=== PATIENT | female | born 1960 | race Caucasian/White ===

== ENCOUNTER 2024-04-19 10:23 | Inpatient (IN) | payer BC ==
[~2024-04-19] VITALS: Ht 149.9 cm; Wt 71.8 kg
[2024-04-19] MEDS ORDERED: MVI,5VIA6 (10:44)
[2024-04-19] MEDS ORDERED: ROSU20TA98 PO (10:44)
[2024-04-19] MEDS ORDERED: OMEP20TA23 PO (10:44)
[2024-04-19 11:11] LABS: BASOPHILS % (AUTO) 0.6 % (0-1); EOSINOPHILS # (AUTO) 0.1 X10'3 (0-0.9); EOSINOPHILS % (AUTO) 0.9 % (0-6); HEMATOCRIT 43.8 % (35.0-45.0); HEMOGLOBIN 14.9 g/dl (12.0-16.0); LYMPHOCYTES # (AUTO) 1.5 X10'3 (1.1-4.8); LYMPHOCYTES % (AUTO) 18.8 % (21-51); MEAN CORPUSCULAR HEMOGLOBIN 31.3 PG (27.0-31.0); MEAN CORPUSCULAR VOLUME 91.9 FL (78-98); MEAN PLATELET VOLUME 7.7 FL (7.4-10.4); MONOCYTES # (AUTO) 0.5 X10'3 (0-0.9); MONOCYTES % (AUTO) 5.7 % (2-12); PLATELET COUNT 339 X10'3 (140-440); RED BLOOD COUNT 4.77 X10'6 (4.20-5.60); RED CELL DISTRIBUTION WIDTH 14.9 % (11.5-14.5); WHITE BLOOD COUNT 8.1 X10'3 (4.5-11.0)
[2024-04-19 11:29] LABS: ALANINE AMINOTRANSFERASE 168 U/L (12-78); ALBUMIN 3.1 G/DL (3.4-5.0); ALBUMIN/GLOBULIN RATIO 0.8 (1.1-1.5); ALKALINE PHOSPHATASE 285 IU/L (46-116); ANION GAP 8 (8-16); ASPARTATE AMINO TRANSFERASE 425 U/L (10-37); BLOOD UREA NITROGEN 14 MG/DL (7-18); CALCIUM 9.2 MG/DL (8.5-10.1); CHLORIDE 108 MMOL/L (99-107); CREATININE 0.56 MG/DL (0.40-0.90); GLUCOSE 99 MG/DL (70-104); POTASSIUM 3.5 MMOL/L (3.5-5.1); SODIUM 144 MMOL/L (135-145); TOTAL CARBON DIOXIDE 28.2 MMOL/L (24-32); TOTAL PROTEIN 6.8 G/DL (6.4-8.2); eCRCL 69 ML/MIN; eGFR > 90 ML/MIN
[2024-04-19 11:32] LABS: LIPASE 33 U/L (16-77)
[2024-04-19] MEDS ORDERED: iohexol 300mg/ml 100ml inj. ONE (12:37)
[2024-04-19 15:23] LABS: BILIRUBIN,URINE NEGATIVE (Neg); CLARITY,URINE CLEAR (Clear); COLOR,URINE YELLOW (Yellow); GLUCOSE, URINE NEGATIVE (Neg); KETONES,URINE 15 mg/dl (Neg); LEUKOCYTE ESTERASE ,URINE NEGATIVE (Neg); NITRITES, URINE NEGATIVE (Neg); OCCULT BLOOD,URINE NEGATIVE (Neg); PROTEIN,URINE NEGATIVE (Neg)
[2024-04-19 15:24] LABS: UA COLLECTION TYPE NON-SPECIFIED
[2024-04-19 17:04] LABS: ALANINE AMINOTRANSFERASE 366 U/L (12-78); ALBUMIN 3.3 G/DL (3.4-5.0); ALBUMIN/GLOBULIN RATIO 0.8 (1.1-1.5); ALKALINE PHOSPHATASE 393 IU/L (46-116); ANION GAP 9 (8-16); ASPARTATE AMINO TRANSFERASE 595 U/L (10-37); BILIRUBIN,TOTAL 0.7 MG/DL (0.1-1.0); BLOOD UREA NITROGEN 13 MG/DL (7-18); BUN/CREATININE RATIO 22.8 (10.0-20.0); CALCIUM 8.8 MG/DL (8.5-10.1); CHLORIDE 105 MMOL/L (99-107); CREATININE 0.57 MG/DL (0.40-0.90); GLUCOSE 100 MG/DL (70-104); SODIUM 142 MMOL/L (135-145); TOTAL PROTEIN 7.2 G/DL (6.4-8.2); eCRCL 68 ML/MIN; eGFR > 90 ML/MIN
[2024-04-19 17:08] LABS: POTASSIUM 3.6 MMOL/L (3.5-5.1)
[2024-04-19] MEDS ORDERED: mag hydrox/Alum hydrox/simeth 30ml oral suspension PO PRN (17:35)
[2024-04-19] MEDS ORDERED: potassium Cl 40MEQ/1/2NS 520ml 520 ML IV PRN (17:35)
[2024-04-19] MEDS ORDERED: acetaminophen 325mg tablet PO PRN (17:35)
[2024-04-19] MEDS ORDERED: magnesium sulf-water 2g/50mL 50 ML IV PRN (17:35)
[2024-04-19] MEDS ORDERED: magnesium hydroxide 30ml (MOM) UD suspension PO PRN (17:35)
[2024-04-19] MEDS ORDERED: morphine 2 MG/ML inj. syringe IV PRN ×4 (17:35→18:05)
[2024-04-19] MEDS ORDERED: magnesium Cl slow-release 64mg tablet PO PRN (17:35)
[2024-04-19] MEDS ORDERED: ondansetron/PF 4mg/2ml inj IV PRN (17:35)
[2024-04-19] MEDS ORDERED: potassium Cl 20 mEq SR tablet PO PRN (17:35)
[2024-04-19] MEDS ORDERED: magnesium sulf-water 4G/100mL 100 ML IV PRN (17:35)
[2024-04-19] MEDS: K and/or MAG REPLACEMENT MC SCH (20:00)
[2024-04-19] MEDS ORDERED: docusate sod 100mg capsule PO SCH (20:00)
[2024-04-19] MEDS ORDERED: enoxaparin 40mg/0.4ml syringe SQ SCH (20:00)
[2024-04-19] MEDS: heparin, porcine 5000 units/ml vial SQ SCH (20:43)
[2024-04-19] MEDS: normal saline 1000ml 1,000 ML IV SCH (20:43)
[2024-04-19] MEDS: pantoprazole 40mg Tablet.DR PO SCH (20:43)
[2024-04-19 22:30] VITALS: BP 114/91; PULSE 62; RESP 18; TEMP 98.9; O2SAT 96; O2SAT 97
[2024-04-20] MEDS ORDERED: TIRZ15PE SQ (03:02)
[2024-04-20 06:15] VITALS: BP 102/38; PULSE 58; RESP 13; TEMP 98; O2SAT 95
[2024-04-20 06:20] LABS: BASOPHILS % (AUTO) 0.1 % (0-1); EOSINOPHILS % (AUTO) 0 % (0-6); HEMOGLOBIN 13.2 g/dl (12.0-16.0); LYMPHOCYTES # (AUTO) 0.6 X10'3 (1.1-4.8); LYMPHOCYTES % (AUTO) 6.3 % (21-51); MEAN CORPUSCULAR HGB CONC 33.9 g/dL (33.0-36.5); MEAN CORPUSCULAR VOLUME 91.3 FL (78-98); MEAN PLATELET VOLUME 8.5 FL (7.4-10.4); MONOCYTES # (AUTO) 0.4 X10'3 (0-0.9); MONOCYTES % (AUTO) 4.3 % (2-12); NEUTROPHILS # (AUTO) 8.6 X10'3 (1.8-7.7); NEUTROPHILS % (AUTO) 89.3 % (42-75); PLATELET COUNT 308 X10'3 (140-440); RED BLOOD COUNT 4.27 X10'6 (4.20-5.60); RED CELL DISTRIBUTION WIDTH 14.8 % (11.5-14.5); WHITE BLOOD COUNT 9.6 X10'3 (4.5-11.0)
[2024-04-20 07:18] LABS: ALANINE AMINOTRANSFERASE 374 U/L (12-78); ALBUMIN 2.7 G/DL (3.4-5.0); ALBUMIN/GLOBULIN RATIO 0.8 (1.1-1.5); ALKALINE PHOSPHATASE 316 IU/L (46-116); ANION GAP 9 (8-16); ASPARTATE AMINO TRANSFERASE 439 U/L (10-37); BLOOD UREA NITROGEN 11 MG/DL (7-18); BUN/CREATININE RATIO 18.3 (10.0-20.0); CHLORIDE 106 MMOL/L (99-107); GLUCOSE 100 MG/DL (70-104); MAGNESIUM 1.9 MG/DL (1.5-2.4); POTASSIUM 3.2 MMOL/L (3.5-5.1); SODIUM 140 MMOL/L (135-145); TOTAL CARBON DIOXIDE 24.8 MMOL/L (24-32); TOTAL PROTEIN 6.1 G/DL (6.4-8.2); eCRCL 65 ML/MIN; eGFR > 90 ML/MIN
[2024-04-20 08:47] VITALS: RESP 16
[2024-04-20] MEDS: potassium Cl 20 mEq SR tablet PO PRN (09:28)
[2024-04-20 11:06] VITALS: BP 97/51; PULSE 73; RESP 18; TEMP 98.6; O2SAT 97
[2024-04-21 08:38] LABS: HBSAG SCREEN Negative (Negative); HEP A AB, IGM Negative (Negative); HEP B CORE AB, TOT Negative (Negative); HEPATITIS C VIRUS ANTIBODY Non Reactive (Non Reactive)
== END 2024-04-20 16:45 | disposition home or self-care (01) | DRG 392 ==
LOC: ER 10:24 → ED HOLD 17:34 → UNDOADMIN 17:34 → ED HOLD 18:08 → SUR 3N 22:19
PROVIDERS: ADMIT Internal Medicine; ATTEND Internal Medicine
DX: K29.70 Gastritis, unspecified, without bleeding (principal); K71.9 Toxic liver disease, unspecified; E78.00 Pure hypercholesterolemia, unspecified; I25.10 Atherosclerotic heart disease of native coronary artery without angina pectoris; R74.01 Elevation of levels of liver transaminase levels; G25.81 Restless legs syndrome; E66.9 Obesity, unspecified; K21.9 Gastro-esophageal reflux disease without esophagitis; R74.8 Abnormal levels of other serum enzymes; T46.6X5A Adverse effect of antihyperlipidemic and antiarteriosclerotic drugs, initial encounter; Z90.49 Acquired absence of other specified parts of digestive tract; I25.2 Old myocardial infarction; Z68.32 Body mass index [BMI] 32.0-32.9, adult; Z82.49 Family history of ischemic heart disease and other diseases of the circulatory system; Z80.0 Family history of malignant neoplasm of digestive organs; Z82.61 Family history of arthritis; Z83.3 Family history of diabetes mellitus; Y92.89 Other specified places as the place of occurrence of the external cause
CPT/HCPCS: 36415; 74177; 74181; 76700; 80053; 81003; 83690; 83735; 84484; 85025; 86704; 86709; 86803; 87081; 87340; 87522; 93005; 99285; G0378; J1644; J7030; Q9967

== ENCOUNTER 2024-05-25 11:34 | Outpatient (CLI) | payer BC ==
[~2024-05-25 11:34] MED LIST: MVI,5VIA6; OMEP20TA23 PO
[2024-05-25 15:03] LABS: ALANINE AMINOTRANSFERASE 60 U/L (12-78); ALBUMIN 3.2 G/DL (3.4-5.0); ALBUMIN/GLOBULIN RATIO 0.8 (1.1-1.5); ALKALINE PHOSPHATASE 234 IU/L (46-116); ASPARTATE AMINO TRANSFERASE 22 U/L (10-37); BILIRUBIN,DIRECT 0.1 MG/DL (0-0.3); BILIRUBIN,TOTAL 0.3 MG/DL (0.1-1.0); TOTAL PROTEIN 7.2 G/DL (6.4-8.2)
== END 2024-05-25 23:59 | disposition home or self-care (01) ==
LOC: LAB 11:34
PROVIDERS: ATTEND Registered Nurse
DX: R79.89 Other specified abnormal findings of blood chemistry (principal)
CPT/HCPCS: 36415; 80076

== ENCOUNTER 2024-07-09 12:13 | Emergency (ER) | payer BC ==
[~2024-07-09] VITALS: Ht 149.9 cm; Wt 69.1 kg
[2024-07-09 12:19] VITALS: TEMP 97.9
[2024-07-09] MEDS: normal saline 1000ml 1,000 ML IVB ONE (12:34)
[2024-07-09 12:44] LABS: BASOPHILS # (AUTO) 0.1 X10'3 (0-0.2); BASOPHILS % (AUTO) 0.9 % (0-1); EOSINOPHILS # (AUTO) 0.1 X10'3 (0-0.9); EOSINOPHILS % (AUTO) 1.1 % (0-6); HEMOGLOBIN 15.3 g/dl (12.0-16.0); LYMPHOCYTES # (AUTO) 3.4 X10'3 (1.1-4.8); MEAN CORPUSCULAR HEMOGLOBIN 30.3 PG (27.0-31.0); MEAN CORPUSCULAR HGB CONC 33.2 g/dL (33.0-36.5); MEAN CORPUSCULAR VOLUME 91.3 FL (78-98); MEAN PLATELET VOLUME 8.4 FL (7.4-10.4); MONOCYTES # (AUTO) 0.6 X10'3 (0-0.9); MONOCYTES % (AUTO) 7.3 % (2-12); NEUTROPHILS # (AUTO) 4.3 X10'3 (1.8-7.7); NEUTROPHILS % (AUTO) 50.7 % (42-75); PLATELET COUNT 406 X10'3 (140-440); RED BLOOD COUNT 5.04 X10'6 (4.20-5.60); RED CELL DISTRIBUTION WIDTH 15.3 % (11.5-14.5); WHITE BLOOD COUNT 8.5 X10'3 (4.5-11.0)
[2024-07-09 12:57] LABS: ALANINE AMINOTRANSFERASE 406 U/L (12-78); ALBUMIN 3.8 G/DL (3.4-5.0); ALKALINE PHOSPHATASE 406 IU/L (46-116); ANION GAP 11 (8-16); ASPARTATE AMINO TRANSFERASE 140 U/L (10-37); BILIRUBIN,TOTAL 0.8 MG/DL (0.1-1.0); BLOOD UREA NITROGEN 18 MG/DL (7-18); BUN/CREATININE RATIO 15.8 (10.0-20.0); CALCIUM 9.4 MG/DL (8.5-10.1); CHLORIDE 105 MMOL/L (99-107); CREATININE 1.14 MG/DL (0.40-0.90); GLUCOSE 102 MG/DL (70-104); POTASSIUM 3.6 MMOL/L (3.5-5.1); SODIUM 140 MMOL/L (135-145); TOTAL CARBON DIOXIDE 23.9 MMOL/L (24-32); TOTAL PROTEIN 7.5 G/DL (6.4-8.2); eCRCL 34 ML/MIN; eGFR 48 ML/MIN
--- NOTE | 2024-07-09 12:59 | RADIOLOGY REPORT ---
EXAM: DI CHEST,SINGLE VIEW Indication: CP Technique: Single frontal view of the chest was obtained Comparison: None FINDINGS: Lines and Tubes: None Lungs: No focal consolidation. Pleura: No effusion. No pneumothorax. Cardiomediastinal contours: Unremarkable Bones: No acute osseous abnormality. IMPRESSION: No acute cardiopulmonary disease.
[2024-07-09 13:04] LABS: PRO BRAIN NATRIURETIC PEPTIDE 2266 PG/ML (0-125)
--- NOTE | 2024-07-09 13:24 | Physician Documentation ---
History of Present Illness ~ Chief Complaint: Syncope Stated Complaint: DIZZINESS Time Seen by MD: 12:39 Primary Medical Doctor: BARNEY PADILLA Mode of Arrival: Ambulatory HPI 63-year-old female who is manipulate that our hospital presenting for dizziness. The patient was outside helping with something and she bent over to pick something up and when she stood up suddenly got very dizzy. She states that it was also very hot outside. She states that she got very lightheaded and felt like she was going to pass out. She then sat down he reports a water over her head and felt better. Medication Reconciliation Allergies: Coded Allergies: No Known Allergies (Unverified , 07/09/24) Scheduled Omeprazole Magnesium (Prilosec Otc), 1 TAB PO DAILY, (Reported) Miscellaneous Medications Mvi, Adult No.1, Vit K, 1 of 2 (M.v.i. Adult Vial 1), (Reported) Past Medical History Patient History: Erythema nodosum FATHER FH: CHF (congestive heart failure) FATHER FH: pancreatic cancer MOTHER FH: rheumatoid arthritis Sister FH: type 2 diabetes FATHER Alcohol Use: None Drug Use: none Lives with: Family Lives In: Home Occupation: employed Physical Exam Vital Signs: Temperature: 97.9, Source: Oral, Heart Rate: 98, Respiratory Rate: 16, BP: 104/59, Pulse Oximetry: 98, Weight: 69.090 Physical Exam I have reviewed the triage vitals. CONST: Well developed and well nourished. In no acute distress HENT: Head Atraumatic EYES: Pupils are equal, round and reactive to light. Normal conjunctiva NECK: Normal range of motion. Supple. CARDIO: Normal rate and regular rhythm. No murmurs, rubs, or gallops. S1, S2. PULM/CHEST: No respiratory distress. Lungs clear to auscultation. No wheeze ABD: Soft and nontender. Nondistended. Bowel sounds normal. No guarding. : Exam deferred MSK: No edema. No deformity. NEURO: Alert and oriented to person, place and time. Moving all extremities SKIN: Warm and dry. PSYCH: Normal mood and affect. Good eye contact. Progress Results/Orders Results/Orders Orders - XIOMY CARTER MD Chest,Single View (07/09/24 12:27) Monitor (07/09/24 12:27) Saline Lock (5/1/25 12:27) Oxygen (07/09/24 12:27) PBNP (07/09/24 12:27) Electrocardiogram (07/09/24 12:27) CMP (07/09/24 12:27) Hs Troponin I W Calculations (07/09/24 14:27) Hs Troponin I W Calculations (07/09/24 15:27) MG (07/09/24 12:18) Completed Orders - XIOMY CARTER MD Normal Saline 1000ml (Sodium Chloride 10 (07/09/24 12:25) Chest,Single View (07/09/24 12:27) Cbc/Diff (07/09/24 12:27) Hs Troponin I W Calculations (07/09/24 12:27) Medications Received in ER Medications (Trade) Dose Ordered Sig/Zari Route PRN Reason Start Time Stop Time Status Last Admin Dose Admin Sodium Chloride 1,000 ml @ 1,000 mls/hr Q1H ONCE IVB 07/09/24 12:25 07/09/24 13:24 DC 07/09/24 12:34 1,000 MLS/HR Vital Signs 07/09/24 07/09/24 12:19 13:57 Temp 97.9 Pulse 98 78 Resp 16 16 B/P (MAP) 104/59 130/84 (99) Pulse Ox 98 95 Laboratory Tests Test 07/09/24 12:18 White Blood Count 8.5 Red Blood Count 5.04 Hemoglobin 15.3 Hematocrit 46.0 H Mean Corpuscular Volume 91.3 Mean Corpuscular Hemoglobin 30.3 Mean Corpuscular Hemoglobin Concent 33.2 Red Cell Distribution Width 15.3 H Platelet Count 406 Mean Platelet Volume 8.4 Neutrophils (%) (Auto) 50.7 Lymphocytes (%) (Auto) 40.0 Monocytes (%) (Auto) 7.3 Eosinophils (%) (Auto) 1.1 Basophils (%) (Auto) 0.9 Neutrophils # (Auto) 4.3 Lymphocytes # (Auto) 3.4 Monocytes # (Auto) 0.6 Eosinophils # (Auto) 0.1 Basophils # (Auto) 0.1 CBC Comment Sodium Level 140 Potassium Level 3.6 Chloride Level 105 Carbon Dioxide Level 23.9 L Anion Gap 11 Blood Urea Nitrogen 18 Creatinine 1.14 H Estimated GFR/1.73 m2 48 BUN/Creatinine Ratio 15.8 Glucose Level 102 Calcium Level 9.4 Total Bilirubin 0.8 Aspartate Amino Transf (AST/SGOT) 140 H Alanine Aminotransferase (ALT/SGPT) 406 H Alkaline Phosphatase 406 H Troponin I High Sensitivity 13 Pro-B-Type Natriuretic Peptide 2266 H Total Protein 7.5 Albumin 3.8 Globulin 3.7 Albumin/Globulin Ratio 1.0 L Chemistry Comments EKG/XRAY/CT/US/VASC/MRI Chest X-Ray : Additional Comments EXAM: DI CHEST,SINGLE VIEW Indication: CP Technique: Single frontal view of the chest was obtained Comparison: None FINDINGS: Lines and Tubes: None Lungs: No focal consolidation. Pleura: No effusion. No pneumothorax. Cardiomediastinal contours: Unremarkable Bones: No acute osseous abnormality. IMPRESSION: No acute cardiopulmonary disease. Departure Disposition: HOME / SELF CARE / HOMELESS Impression: Primary Impression: Dizziness Additional Impressions: Pre-syncope Dehydration Discharge Instructions: Dehydration, Elderly, [id number] Referrals: NO PRIMARY CARE PROVIDER (PCP) XIOMY CARTER MD July 09, 2024 13:24
[2024-07-09 13:57] VITALS: BP 130/84; PULSE 78; RESP 16; O2SAT 95
[2024-07-09 14:06] LABS: MAGNESIUM 2.1 MG/DL (1.5-2.4)
--- NOTE | 2024-07-10 06:38 | ELECTROCARDIOGRAPH REPORT ---
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 Ryland Lynn Measurements Intervals [place] Rate: 73 P: 10 TN: 168 QRS: -4 QRSD: 96 T: 58 QT: 443 QTc: 489 Interpretive Statements Sinus rhythm Supraventricular bigeminy Borderline T wave abnormalities Borderline prolonged QT interval Electronically Signed On 07-10-2024 22:15:[address] Ryland Lynn Please click the below link to view image of tracing.
== END 2024-07-09 14:12 | disposition home or self-care (01) ==
LOC: ER 12:14
DX: R42 Dizziness and giddiness (principal); R55 Syncope and collapse; E86.0 Dehydration; Z79.899 Other long term (current) drug therapy
CPT/HCPCS: 36415; 71045; 80053; 83735; 83880; 84484; 85025; 93005; 96360; 99285; J7030

== ENCOUNTER 2024-07-24 09:39 | Outpatient (CLI) | payer BC ==
[2024-07-24 10:28] LABS: ALANINE AMINOTRANSFERASE 54 U/L (12-78); ALBUMIN 3.1 G/DL (3.4-5.0); ALKALINE PHOSPHATASE 191 IU/L (46-116); ANION GAP 7 (8-16); ASPARTATE AMINO TRANSFERASE 28 U/L (10-37); BILIRUBIN,TOTAL 0.4 MG/DL (0.1-1.0); BLOOD UREA NITROGEN 12 MG/DL (7-18); BUN/CREATININE RATIO 14.8 (10.0-20.0); CALCIUM 8.6 MG/DL (8.5-10.1); CHLORIDE 108 MMOL/L (99-107); CREATININE 0.81 MG/DL (0.40-0.90); GLUCOSE 146 MG/DL (70-104); POTASSIUM 3.9 MMOL/L (3.5-5.1); PRO BRAIN NATRIURETIC PEPTIDE 819 PG/ML (0-125); SODIUM 143 MMOL/L (135-145); TOTAL CARBON DIOXIDE 27.9 MMOL/L (24-32); TOTAL PROTEIN 6.3 G/DL (6.4-8.2); eGFR 71 ML/MIN
== END 2024-07-24 23:59 | disposition home or self-care (01) ==
LOC: LAB 09:39
PROVIDERS: ATTEND Nurse Practitioner Family
DX: R06.02 Shortness of breath (principal)
CPT/HCPCS: 36415; 80053; 83880

== ENCOUNTER 2024-08-10 08:05 | Outpatient (CLI) | payer BC, MEDICARE ==
[~2024-08-10] VITALS: Ht 151.1 cm; Wt 71.8 kg
[2024-08-10] VITALS (7 sets, daily range): BP systolic 123–136; BP diastolic 56–86; PULSE 60–103; RESP 16; O2SAT 96–99
[2024-08-10] MEDS ORDERED: regadenoson 0.4mg/5ml syringe IV ONE (09:05)
[2024-08-10] MEDS ORDERED: aminophylline 500mg/20ml vial IV ONE (09:05)
[2024-08-10] MEDS: regadenoson 0.4mg/5ml syringe IV ONE (10:18)
--- NOTE | 2024-08-10 14:26 | RADIOLOGY REPORT ---
Procedure: NM NM YANA SCAN Exam Date: 08/10/2024 09:41 AM Reason for study/Clinical History: UNSPECIFIED ATRIAL FIBRILLATION Comparison Study: None Myocardial Perfusion Study with SPECT Technique: The patient received an intravenous injection of 8.8 mCi of technetium-99m sestamibi whi le at rest. After a short delay, SPECT tomographic images of the heart were obtained. The patient corine fortune went to the stress lab where they received an intravenous Lexiscan utilizing standard protocol. 3 5 mCi of technetium-99m sestamibi was injected intravenously immediately after the start of the inf usion. Gated SPECT tomographic images of the heart were acquired and processed. Findings: Rotating planar images show no significant attenuation artifact. No evidence for ischemia. Prior infarction of the apical wall. Gated portion of the study shows normal wall motion and myocardial thickening. The left ventricular ejection fraction is 28%. (normal greater than 50%) Impression: No evidence for ischemia. Prior apical wall infarction.
--- NOTE | 2024-08-10 18:46 | CARDIOLOGY REPORT ---
APPROVED REPORT EXAM: Comprehensive 2D, Doppler, and color-flow Echocardiogram. Patient Location: OUT-PATIENT Blood Pressure: 114 / 70 mmHg Heart Rate: 61-112 bpm Rhythm: SINUS ARRHYTHMIA Indications ATRIAL FIBRILLATION HYPERLIPIDEMIA SHORT OF BREATH Radiologic Technologist Mammogram: Erin Benitez MD Previous echo: NONE 2D Dimensions RVDd 3.2 cm LA Diam5.4 cm LVOT Diameter 2.06 (1.8-2.4cm) M-Mode Dimensions Left Atrium(MM) 4.86 (2.5-4.0cm) IVSd 0.70 (0.7-1.1cm) LVDd 6.70 (4.0-5.6cm) Aortic Root 2.59 (2.2-3.7cm) PWd 0.81 (0.7-1.1cm) IVSs 1.30 cm MV EPSS 1.2 (<0.5cm) LVDs 4.68 (2.0-3.8cm) FS (%) 30 % PWs 1.19 cm ESV(Teich) 101.1 ml LVEF(%) 56 (>50%) Aortic Valve AoV Peak Khadar. 141.7 cm/s AoV VTI 32.5 cm AO Peak GR. 7.6 mmHg AO Mean GR. 5 mmHg LVOT VTI 23.07 cm LVOT Peak Khadar. 98.8 cm/s HAMIDA (VMAX) 2.31 cm2 HAMIDA (VTI) 2.35 cm2 Mitral Valve MV E Velocity 94.0 cm/s MV DECEL TIME 171 ms MV A Velocity 68.3 cm/s MV PHT 82 ms E/A Ratio 1.4 MVA (PHT) 2.69 cm2 LEFT VENTRICLE Normal LV size and wall thickness. Overall systolic function is low normal. LVEF is 55%. GLS - 13.4 % . RIGHT VENTRICLE RV is normal size and function. ATRIA Left atrium is moderately dilated. AORTIC VALVE Trileaflet AV appears mildly sclerotic without stenosis or insufficiency. MITRAL VALVE Thickened MV annulus and leaflets without stenosis. Trace regurgitation. TRICUSPID VALVE TV appears structurally normal with trace regurgitation. PULMONIC VALVE Normal PV without stenosis, physiologic insufficiency. GREAT VESSELS Aortic root is normal in size. Normal appearing arch with normal flow velocities. Ascending aorta is normal in size. PERICARDIUM Normal pericardium. No effusion. Other Information Study Quality: Adequate Conclusion Normal LV size and wall thickness. Overall systolic function is low normal. LVEF is 55%. GLS - 13.4 % . RV is normal size and function. Left atrium is moderately dilated. Trileaflet AV appears mildly sclerotic without stenosis or insufficiency. Thickened MV annulus and leaflets without stenosis. Trace regurgitation. TV appears structurally normal with trace regurgitation. Normal pericardium. No effusion.
== END 2024-08-10 23:59 | disposition home or self-care (01) ==
LOC: RAD 08:05
PROVIDERS: ATTEND Nurse Practitioner Family
DX: I08.8 Other rheumatic multiple valve diseases (principal); I48.91 Unspecified atrial fibrillation
CPT/HCPCS: 93017; 93306; J0280; J2785

== ENCOUNTER 2025-01-11 08:31 | Emergency (ER) | payer BC ==
[2025-01-11 08:31] VITALS: BP 125/76; PULSE 64; RESP 18; TEMP 98.5; O2SAT 98
[2025-01-11 09:06] LABS: UA COLLECTION TYPE CLN CATCH MIDSTREAM
[2025-01-11 09:12] LABS: SQUAMOUS EPITHELIAL CELL,UR FEW /LPF (FEW)
[2025-01-11] MEDS ORDERED: NITR100C PO (09:18)
--- NOTE | 2025-01-11 09:22 | Physician Documentation ---
History of Present Illness ~ Chief Complaint: Urinary Symptoms Stated Complaint: URINARY SYMPTOMS Time Seen by MD: 08:43 Primary Medical Doctor: BARNEY PADILLA [facility] Patient presents requesting antibiotics as she suspect she has a urinary tract infection. States she took an at-home test with a positive leukocytes. Reports frequent urination and burning urination. Denies any fevers. Medication Reconciliation Allergies: Coded Allergies: No Known Allergies (Unverified , 07/09/24) Scheduled Nitrofurantoin Macrocrystal (Nitrofurantoin), 1 CAP PO Q12H Omeprazole Magnesium (Prilosec Otc), 1 TAB PO DAILY, (Reported) Miscellaneous Medications Mvi, Adult No.1, Vit K, 1 of 2 (M.v.i. Adult Vial 1), (Reported) Past Medical History Patient History: Erythema nodosum FATHER FH: CHF (congestive heart failure) FATHER FH: pancreatic cancer MOTHER FH: rheumatoid arthritis Sister FH: type 2 diabetes FATHER Alcohol Use: None Drug Use: none Lives with: Family Lives In: Home Occupation: employed Review of Systems All Other Systems at this time: Reviewed and Negative ROS As stated above in the HPI, otherwise all systems are reviewed and negative. Physical Exam Vital Signs: Temperature: 98.5, Source: Temporal, Heart Rate: 64, Respiratory Rate: 18, BP: 125/76, Pulse Oximetry: 98 Oxygen Flow Rate: 0 Physical Exam General: Alert, no apparent distress. Gastrointestinal: Soft, nontender, nondistended. Bowels sounds present. Negative CVA tenderness Extremities: Normal range of motion, no deformity. Neurologic: Oriented x4. Psychiatric: Normal mood and affect. Skin: Normal color, warm and dry. No edema, no ecchymosis. Progress Results/Orders Results/Orders Orders - VERENA ALAS MD Cult Urine + [place] [address] (01/11/25 09:12) Completed Orders - VERENA ALAS MD Ua W/Microscopic, Cult If Ind (01/11/25 08:43) Vital Signs 01/11/25 08:31 Temp 98.5 Pulse 64 Resp 18 B/P (MAP) 125/76 Pulse Ox 98 O2 Flow Rate 0 Laboratory Tests Test 01/11/25 08:43 Urine Specimen Description Cln catch midstream Urine Color [place] Urine Clarity Slightly cloudy Urine pH Urine Specific [place] Urine Protein Urine Glucose (UA) Urine Ketones Urine Occult Blood Urine Nitrite Urine Bilirubin Urine Urobilinogen Urine Leukocyte Esterase Urine RBC 10-20 Urine WBC Tntc H Urine Squamous Epithelial Cells Few Urine Transitional Epithelial Cells Few Urine Bacteria 2+ Urine Culture Indicated Indicated Volume Urine Centrifuged 10 ml Urine Comment See note Microbiology Date/Time Source Procedure Growth Status 01/11/25 09:12 Urine Clean Catch Midstream Urine Culture - Preliminary Culture received. Resulted Medical Decision Making Additional information obtaine: N/A Findings Patient's urinalysis positive for grossly elevated WBCs and plus two bacteria. At this time I am going to treat her empirically and give her some Pyridium while in the ED Urinary Diff Dx:Considerations: Include: AAA, , Aortic dissection, Appendicitis, Bowel obstruction, Cholelithiasis, Choleangitis, DJD, Ectopic , Hepatitis, HNP, Impaction, Intrauterine , Musculoskeletal pain, Ovarian torsion, Pancreatitis, PID, Post-Op complication, Pyelonephritis, Renal failure, Strain, Urinary Obstruction, Urolithiasis, Urinary retention, UTI, Vaginitis, Other Genital Diff Dx:Considerations: Unlikely: -Complete, - Incomplete, -Inevitable, Ablortion-Missed, -Threatened, Abruptio placentae, Bartholin abscess, Bartholin cyst, Blood loss anemia, Constipation, Cervicitis, Dsymenorrhea, Ectopic , Foreign body, Hormonal, Hidradenitis suppurativa, Intrauterine , Menorrhagia, Menometrorrhagia, Menstrual bleeding, Myomatous uterus, Perianal abscess, Physiologic discharge, Pinworms, PID, Placenta previa, , Precipitous Hct, Trauma, UTI, Vagi nitis(osis)-Atrophic, Vaginitis, Vaginitis(osis)-Bacterial, Vaginitis(osis)- Candidal, Vaginitis(osis)-Contact, Vaginitis(osis)-Herpes, Vaginitis(osis)- Trich., Other Departure Disposition: HOME / SELF CARE / HOMELESS Impression: Primary Impression: Acute urinary tract infection Condition: Improved Discharge Instructions: Urinary Tract Infection, Adult Referrals: NO PRIMARY CARE PROVIDER (PCP) Prescriptions Nitrofurantoin Macrocrystal (Nitrofurantoin) 100 Mg Capsule 1 CAP PO Q12H for 7 Days, #14 CAP 0 Refills Prov: VAUGHN CASTRO NP 01/11/25 Education Educated: Patient Educated regarding: diagnosis Signature Scribe Signature: cv Attestation: Scribed for Vaughn Castro Tube Bending Machine Operator by Vaughn Stewart NP . 01/11/25 09:19 VAUGHN CASTRO NP Jan 11, 2025 09:22 VERENA ALAS MD Jan 11, 2025 17:43
[2025-01-11] MEDS: phenazopyridine 100mg tablet PO ONE (09:29)
== END 2025-01-11 09:32 | disposition home or self-care (01) ==
LOC: EEVIPCON 08:32 → ER 08:32
DX: N39.0 Urinary tract infection, site not specified (principal); Z79.899 Other long term (current) drug therapy
CPT/HCPCS: 81001; 87077; 87088; 87186; 99283

== ENCOUNTER 2025-01-12 06:53 | Outpatient (CLI) | payer BC ==
[~2025-01-12 06:53] MED LIST changes: +NITR100C PO
[2025-01-12 07:49] LABS: MEAN PLATELET VOLUME 7.7 FL (7.4-10.4); RED CELL DISTRIBUTION WIDTH 14.5 % (11.5-14.5)
[2025-01-12 07:58] LABS: CREATININE 0.80 MG/DL (0.40-0.90); TOTAL CARBON DIOXIDE 26.6 MMOL/L (24-32); eGFR 72 ML/MIN
[2025-01-12 08:06] LABS: CHOL/HDL RATIO 2.5 (0.00-4.99); LDL CHOLESTEROL 75 MG/DL (50-100); PRO BRAIN NATRIURETIC PEPTIDE 1023 PG/ML (0-125)
== END 2025-01-12 23:59 | disposition home or self-care (01) ==
LOC: RAD 06:53
PROVIDERS: ATTEND Nurse Practitioner Family
DX: I48.0 Paroxysmal atrial fibrillation (principal); Z76.89 Persons encountering health services in other specified circumstances; R94.4 Abnormal results of kidney function studies; R79.89 Other specified abnormal findings of blood chemistry; E78.5 Hyperlipidemia, unspecified; Z90.49 Acquired absence of other specified parts of digestive tract
CPT/HCPCS: 36415; 80053; 80061; 82150; 83690; 83880; 85025